=== PATIENT | male | born 1945 | race Caucasian/White ===

== ENCOUNTER 2021-10-01 14:20 | Emergency (ER) | payer OTHER ==
[~2021-10-01] VITALS: Ht 172.7 cm; Wt 68.9 kg
[~2021-10-01 14:20] MED LIST: LIPITOR20 MG; NORVASC5 MG; TENORMIN25 MG
== END 2021-10-01 18:18 | disposition home or self-care (01) ==
LOC: ER 14:20
DX: R53.83 Other fatigue (principal)

== ENCOUNTER 2023-04-17 17:12 | Emergency (ER) | payer OTHER ==
[~2023-04-17] VITALS: Ht 172.7 cm; Wt 68.9 kg
[2023-04-17] MEDS ORDERED: PLAVIX75 MG PO (18:26)
[2023-04-17] MEDS ORDERED: TROSPIUM CHLORI60 MG PO (18:27)
[2023-04-17 20:23] LABS: HEMOGLOBIN 16.6 g/dL (13-16.00); MEAN CELL VOLUME 88.6 fL (80.0-100.00); MEAN CORPUSCULAR HEMOGLOBIN 30.6 pg (27.00-32.0); MEAN CORPUSCULAR HGB CONC 34.6 g/dl (32.0-36.0); PLATELET COUNT 153 K/uL (150-450); RED BLOOD COUNT 5.42 M/uL (4.00-6.00); RED CELL DISTRIBUTION WIDTH 13.7 % (11.5-14.5)
[2023-04-17 20:47] LABS: BILIRUBIN TOTAL 2.32 mg/dL (0.3-1.2); CALCIUM 10.2 mg/dL (8.5-10.1); CREATININE SERUM 1.36 mg/dL (0.70-1.30); GFR 50.55; GLOBULINA 4.1 G/DL (2.4-3.5); POTASSIUM 4.14 mEq/L (3.5-5.1); TOTAL PROTEIN 8.1 gm/dL (6.4-8.2)
[2023-04-17] MEDS ORDERED: ONDANSETRON ODT8 MG PO (22:29)
[2023-04-17] MEDS ORDERED: PEPCID AC20 MG PO (22:29)
== END 2023-04-17 22:51 | disposition home or self-care (01) ==
LOC: ER 17:12
PROVIDERS: General Practice
DX: K52.9 Noninfective gastroenteritis and colitis, unspecified (principal); R11.10 Vomiting, unspecified; I10 Essential (primary) hypertension; Z20.822 Contact with and (suspected) exposure to COVID-19
CPT/HCPCS: 36415; 96365; 96366; 99282; J2405; J3490 ×2; J7030